=== PATIENT | female | born 1935 | race Caucasian/White ===

== ENCOUNTER 2016-07-05 11:03 | Emergency (ER) | payer MEDICARE, BC ==
[2016-07-05 11:32] VITALS: BP 136/60
--- NOTE | 2016-07-05 12:12 | UC ---
Respiratory Complaint HPI - HPI Summary HPI Summary: Had one day last week with lots of watery nasal congestion that seemed to go away with diphenhydramine and flonase. Now having hoarseness, cough, sneezing, thin nasal congestion and mild chest tightness starting 2 nights ago. No fevers or vomiting. Took zithromax in [place] (rx in [place]) for tracheitis, said that started with sneezing congestion and cough. - History of Current Complaint Chief Complaint: UCRespiratory Stated Complaint: DEEP COUGH,HEADACHE Time Seen by Provider: 07/05/16 11:42 Hx Obtained From: Patient ?: No Onset/Duration: Gradual Onset, Lasting Days Timing: Constant Severity Initially: Mild Severity Currently: Mild Character: Cough: Nonproductive Aggravating Factors: Recumbent Position Alleviating Factors: Upright Position Associated Signs And Symptoms: Positive: Wheezing - mild, URI, Nasal Congestion , Hoarseness. Negative: Fever, Chills - Allergies/Home Medications Allergies/Adverse Reactions: Allergies Allergy/AdvReac Type Severity Reaction Status Date / Time Penicillins Allergy Mild Rash Verified 07/05/16 11:22 Tetracycline Allergy Mild Rash Verified 07/05/16 11:22 Home Medications: Home Medications Apixaban* [Eliquis*] 5 mg BID 07/05/16 [History Confirmed 07/05/16] O2 SEE INSTRUCTIONS 07/05/16 [History] PMH/Surg Hx/FS Hx/Imm Hx Cardiovascular History Of: Reports: Cardiac Disorders - a fib, Hypertension Respiratory History Of: Reports: COPD - Surgical History Surgical History: Yes Surgery Procedure, Year, and Place: 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 - Family History Known Family History: Positive: Hypertension - Social History Occupation: Retired Alcohol Use: Rare Substance Use Type: None Smoking Status (MU): Former Smoker Type: Cigarettes Amount Used/How Often: 2 PPD Length of Time of Smoking/Using Tobacco: 40+ Years Have You Smoked in the Last Year: No When Did the Patient Quit Smoking/Using Tobacco: 03/20/94 - Immunization History Most Recent Influenza Vaccination: 2016 Most Recent Tetanus Shot: UTD Most Recent Pneumonia Vaccination: UTD Review of Systems Constitutional: Negative Skin: Negative Eyes: Negative ENT: Nasal Discharge Respiratory: Cough Cardiovascular: Negative Gastrointestinal: Negative Genitourinary: Negative Motor: Negative Neurovascular: Negative Musculoskeletal: Negative Neurological: Negative Psychological: Negative All Other Systems Reviewed And Are Negative: Yes Physical Exam Triage Information Reviewed: Yes Appearance: Well-Appearing, No Pain Distress, Well-Nourished Vital Signs: Initial Vital Signs Temp 97.5 F 07/05/16 11:25 Pulse 73 07/05/16 11:25 Resp 18 07/05/16 11:25 BP 136/60 07/05/16 11:25 Pulse Ox 96 07/05/16 11:25 Vital Signs Reviewed: Yes Eye Exam: Normal, Other - post cataract repair Eyes: Positive: Conjunctiva Clear ENT: Positive: Pharynx normal, Nasal congestion - mild, TMs normal. Negative: Tonsillar swelling, Tonsillar exudate Dental Exam: Normal Neck exam: Normal Neck: Positive: Supple, Nontender, No Lymphadenopathy Respiratory: Positive: No respiratory distress, No accessory muscle use - good air movement, Wheezing - minor Cardiovascular Exam: Normal Cardiovascular: Positive: RRR, No Murmur Musculoskeletal Exam: Normal Musculoskeletal: Positive: ROM Intact Neurological Exam: Normal Neurological: Positive: Alert Psychological Exam: Normal Skin Exam: Normal UC Diagnostic Evaluation - Laboratory O2 Sat by Pulse Oximetry: 96 Respiratory Course/Dx - Differential Dx/Diagnosis Provider Diagnoses: URI. allergic rhinitis Discharge - Discharge Plan Condition: Stable Disposition: HOME Prescriptions: Azithromycin TAB* [Zithromax TAB (Z-CONSTANCE) 250 mg #6 tabs] 250 mg PO DAILY #1 constance Patient Education Materials: Cold Symptoms (ED), Allergic Rhinitis (ED) Referrals: Rehan Shaw MD [Primary Care Provider] - Additional Instructions: Keep taking your flonase and start taking 10mg cetirizine (zyrtec) daily to help with the allergic component. You can continue the robitussin if it helps; viral infections usually start to improve after 5-7 days, so it may still be some days before you actually feel improvement. You should only start the zithromax if you develop fever over 100.3F or a significant increase in sputum from your chest. If your symptoms pass without significant worsening, you do not need to take the antibiotic at all. Come back or see your primary care provider if you have wheezing or increasing tightness in your chest.
== END 2016-07-05 12:18 | disposition home or self-care (01) ==
LOC: UCCORT 11:03
DX: J06.9 Acute upper respiratory infection, unspecified (principal); J30.9 Allergic rhinitis, unspecified; I10 Essential (primary) hypertension; I48.91 Unspecified atrial fibrillation; J44.9 Chronic obstructive pulmonary disease, unspecified; Z95.2 Presence of prosthetic heart valve; Z88.1 Allergy status to other antibiotic agents; Z88.0 Allergy status to penicillin; Z87.891 Personal history of nicotine dependence
CPT/HCPCS: 99212; G0463

== ENCOUNTER 2016-10-30 09:21 | Emergency (ER) | payer MEDICARE, BC ==
--- NOTE | 2016-10-30 09:33 | UC ---
Allergic Reaction HPI - HPI Summary HPI Summary: 81 YEAR OLD FEMALE PRESENTS WITH COMPLAINS OF HORNET STING ON LEFT KNEE AND ARM. - History of Current Complaint Stated Complaint: BEE STING Time Seen by Provider: 10/30/16 09:33 ?: No Onset/Duration: Sudden Onset Severity Initially: Moderate Severity Currently: Moderate Pain Scale Used: 0-10 Numeric - 3 Location: Diffuse Character: Swelling, Pruritus, Pain Aggrevating Factor(s): Nothing Alleviating Factor(s): Nothing Associated Signs And Symptoms: Positive: Negative - Related Hx Possible Reaction To: Insect - Allergies/Home Medications Allergies/Adverse Reactions: Allergies Allergy/AdvReac Type Severity Reaction Status Date / Time Penicillins Allergy Mild Rash Verified 10/30/16 09:49 Tetracycline Allergy Mild Rash Verified 10/30/16 09:49 adhesive tapes Allergy Rash Uncoded 10/30/16 09:49 Home Medications: Home Medications Albuterol HFA INHALER* [Ventolin HFA Inhaler*] 2 puff INH ONCE PRN 10/30/16 [ History Confirmed 10/30/16] Diphenhydramine HCl [Benadryl Allergy 25 MG TAB] 25 mg PO ONCE 10/30/16 [ History Confirmed 10/30/16] Stress Tab With Zn 1 tab PO DAILY 10/30/16 [History Confirmed 10/30/16] PMH/Surg Hx/FS Hx/Imm Hx Previously Healthy: Yes - Surgical History Surgical History: Yes Surgery Procedure, Year, and Place: 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 - Family History Known Family History: Positive: Hypertension - Social History Alcohol Use: Rare Substance Use Type: None Smoking Status (MU): Former Smoker Type: Cigarettes Amount Used/How Often: 2 PPD Length of Time of Smoking/Using Tobacco: 40+ Years Have You Smoked in the Last Year: No When Did the Patient Quit Smoking/Using Tobacco: 03/20/94 - Immunization History Most Recent Influenza Vaccination: 2016 Most Recent Tetanus Shot: UTD Most Recent Pneumonia Vaccination: UTD Review of Systems Constitutional: Negative Skin: Rash, Other - HORNET STING Eyes: Negative ENT: Negative Respiratory: Negative Cardiovascular: Negative Gastrointestinal: Negative Genitourinary: Negative Motor: Negative Neurovascular: Negative Musculoskeletal: Negative Neurological: Negative Psychological: Negative All Other Systems Reviewed And Are Negative: Yes Physical Exam Triage Information Reviewed: Yes Eye Exam: Normal ENT Exam: Normal Dental Exam: Normal Neck exam: Normal Neck: Positive: 1 Respiratory Exam: Normal Cardiovascular Exam: Normal Abdominal Exam: Normal Musculoskeletal Exam: Normal Neurological Exam: Normal Psychological Exam: Normal Skin: Positive: rashes - LEFT KNEE /ARM Allergic Reaction Course/Dx - Differential Dx/Diagnosis Provider Diagnoses: BEE STING. RASH Discharge - Discharge Plan Condition: Stable Disposition: HOME Prescriptions: LoraTADine TAB(NF) [Claritin 10 MG TAB(NF)] 10 mg PO DAILY #30 tab Triamcinolone 0.1% CREAM (NF) [Kenalog 0.1% Cream (NF)] 1 applic TOPICAL TID PRN #90 gm PRN Reason: Itching predniSONE TAB* [Deltasone TAB*] 40 mg PO DAILY #10 tab Patient Education Materials: Insect Bite or Sting (ED) Referrals: Rehan Shaw MD [Primary Care Provider] -
[2016-10-30 10:05] VITALS: BP 140/48
== END 2016-10-30 10:09 | disposition home or self-care (01) ==
LOC: UCCORT 09:21
DX: T63.441A Toxic effect of venom of bees, accidental (unintentional), initial encounter (principal); R21 Rash and other nonspecific skin eruption; Y92.9 Unspecified place or not applicable; Z95.2 Presence of prosthetic heart valve; Z88.1 Allergy status to other antibiotic agents; Z88.0 Allergy status to penicillin; Z91.048 Other nonmedicinal substance allergy status; Z87.891 Personal history of nicotine dependence
CPT/HCPCS: 99212; G0463

== ENCOUNTER 2017-05-23 10:50 | Emergency (ER) | payer MEDICARE, BC ==
[2017-05-23 11:53] VITALS: BP 124/67
--- NOTE | 2017-05-23 12:17 | UC ---
Respiratory Complaint HPI - HPI Summary HPI Summary: cough x 1 week no fever, no chills, + nasal congestion no wheezing , no sob - History of Current Complaint Chief Complaint: UCGeneralIllness Stated Complaint: COUGH,CONGESTION,ACHY Time Seen by Provider: 05/23/17 11:50 Hx Obtained From: Patient ?: No Onset/Duration: Gradual Onset Timing: Constant Severity Initially: Moderate Severity Currently: Moderate Pain Intensity: 0 Pain Scale Used: 0-10 Numeric Character: Cough: Nonproductive Aggravating Factors: Deep Breaths Alleviating Factors: Nothing Associated Signs And Symptoms: Positive: URI, Nasal Congestion. Negative: Dyspnea, Fever, Chills, Pleuritic Chest Pain, Wheezing, Hemoptysis, Dizziness, Calf Pain, Calf Swelling, Edema - Allergies/Home Medications Allergies/Adverse Reactions: Allergies Allergy/AdvReac Type Severity Reaction Status Date / Time MS Penicillins [Penicillins] Allergy Mild Rash Verified 10/30/16 09:49 MS Tetracycline Allergy Mild Rash Verified 10/30/16 09:49 [Tetracycline] adhesive tapes Allergy Rash Uncoded 10/30/16 09:49 PMH/Surg Hx/FS Hx/Imm Hx Cardiovascular History: Hypertension, Atrial Fibrillation - Surgical History Surgical History: Yes Surgery Procedure, Year, and Place: 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 - Family History Known Family History: Positive: Hypertension - Social History Alcohol Use: Occasionally Substance Use Type: None Smoking Status (MU): Former Smoker Type: Cigarettes Amount Used/How Often: 2 PPD Length of Time of Smoking/Using Tobacco: 40+ Years Have You Smoked in the Last Year: No When Did the Patient Quit Smoking/Using Tobacco: 03/20/94 - Immunization History Most Recent Influenza Vaccination: 2016 Most Recent Tetanus Shot: UTD Most Recent Pneumonia Vaccination: UTD Review of Systems Constitutional: Negative Skin: Negative Eyes: Negative ENT: Nasal Discharge Respiratory: Cough Cardiovascular: Negative Gastrointestinal: Negative Is Patient Immunocompromised?: No All Other Systems Reviewed And Are Negative: Yes Physical Exam Triage Information Reviewed: Yes Appearance: Well-Appearing, No Pain Distress, Well-Nourished Vital Signs: Initial Vital Signs Temp 98.7 F 05/23/17 11:42 Pulse 75 05/23/17 11:42 Resp 16 05/23/17 11:42 BP 124/67 05/23/17 11:42 Pulse Ox 97 05/23/17 11:42 Vital Signs Reviewed: Yes Eye Exam: Normal Eyes: Positive: Conjunctiva Clear ENT: Positive: Normal ENT inspection, Hearing grossly normal, Pharynx normal Neck: Positive: Supple, Nontender, No Lymphadenopathy Respiratory: Positive: Chest non-tender, Lungs clear, Normal breath sounds Cardiovascular: Positive: RRR, No Murmur, Pulses Normal Skin Exam: Normal UC Diagnostic Evaluation - Laboratory O2 Sat by Pulse Oximetry: 97 Respiratory Course/Dx - Differential Dx/Diagnosis Provider Diagnoses: bronchitis Discharge - Discharge Plan Condition: Stable Disposition: HOME Prescriptions: Codeine Phosphate/Guaifenesin [Cheratussin AC] 10 ml PO Q8H #120 ml MDD 30 ml Patient Education Materials: Acute Bronchitis (ED) Referrals: Rehan Shaw MD [Primary Care Provider] - 7 Days
== END 2017-05-23 12:11 | disposition home or self-care (01) ==
LOC: UCCORT 10:50
DX: J40 Bronchitis, not specified as acute or chronic (principal); Z88.1 Allergy status to other antibiotic agents; Z88.0 Allergy status to penicillin; Z91.048 Other nonmedicinal substance allergy status; Z87.891 Personal history of nicotine dependence
CPT/HCPCS: 99212; G0463

== ENCOUNTER 2018-05-30 10:40 | Emergency (ER) | payer MEDICARE, BC ==
[2018-05-30 12:27] VITALS: BP 139/71
--- NOTE | 2018-05-30 12:47 | UC ---
Respiratory Complaint HPI - HPI Summary HPI Summary: This patient has had a chronic cough over the past couple of months due to her blood pressure medicine. She states 2 days ago she received the shingles vaccination and since then she has had some fatigue, worsening of her cough. - History of Current Complaint Chief Complaint: UCRespiratory Stated Complaint: COUGH Time Seen by Provider: 05/30/18 12:46 Hx Obtained From: Patient ?: No Onset/Duration: Other - Patient has a chronic cough due to her blood pressure medicine Timing: Intermittent Episodes Severity Initially: Mild Severity Currently: Mild Pain Intensity: 0 Character: Cough: Nonproductive Aggravating Factors: Other - Blood pressure medicine however she did get a shingles vaccination 2 days ago Alleviating Factors: Nothing Associated Signs And Symptoms: Positive: Negative - Allergies/Home Medications Allergies/Adverse Reactions: Allergies Allergy/AdvReac Type Severity Reaction Status Date / Time Penicillins Allergy Rash Verified 05/30/18 12:21 Tetracyclines Allergy Rash Verified 05/30/18 12:21 adhesive tapes Allergy Rash Uncoded 10/30/16 09:49 Home Medications: Home Medications Acetaminophen [Tylenol Arthritis] 650 mg PO BID 05/30/18 [History Confirmed ] Albuterol inh POWDER (NF) [Proair Respiclick] 1 puff INH DAILY PRN 05/30/18 [ History Confirmed 05/30/18] Losartan TAB* [Cozaar TAB*] 25 mg PO DAILY 05/30/18 [History Confirmed 05/30/18] Oxygen 2 05/30/18 [History] Simvastatin [Zocor] 40 mg PO DAILY 05/30/18 [History Confirmed 05/30/18] PMH/Surg Hx/FS Hx/Imm Hx Previously Healthy: Yes Cardiovascular History: Hypertension Respiratory History: COPD - Surgical History Surgical History: Yes Surgery Procedure, Year, and Place: 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 - Family History Known Family History: Positive: Hypertension - Social History Occupation: Retired Alcohol Use: Occasionally Substance Use Type: None Smoking Status (MU): Former Smoker Type: Cigarettes Amount Used/How Often: 2 PPD Length of Time of Smoking/Using Tobacco: 40+ Years Have You Smoked in the Last Year: No When Did the Patient Quit Smoking/Using Tobacco: 03/20/94 - Immunization History Most Recent Influenza Vaccination: 2016 Most Recent Tetanus Shot: UTD Most Recent Pneumonia Vaccination: UTD Review of Systems All Other Systems Reviewed And Are Negative: Yes Constitutional: Positive: Negative Skin: Positive: Negative Eyes: Positive: Negative ENT: Positive: Negative Respiratory: Positive: Cough - Chronic dry cough from her blood pressure medicine however she states over the past couple days it has worsened. Cardiovascular: Positive: Negative Gastrointestinal: Positive: Negative Genitourinary: Positive: Negative Motor: Positive: Negative Neurovascular: Positive: Negative Musculoskeletal: Positive: Negative Neurological: Positive: Negative Psychological: Positive: Negative Is Patient Immunocompromised?: No Physical Exam Triage Information Reviewed: Yes Appearance: Well-Appearing, No Pain Distress, Well-Nourished Vital Signs: Initial Vital Signs Temp 98.3 F 05/30/18 12:19 Pulse 93 05/30/18 12:19 Resp 20 05/30/18 12:19 BP 139/71 05/30/18 12:19 Pulse Ox 97 05/30/18 12:19 Vital Signs Reviewed: Yes Eye Exam: Normal ENT Exam: Normal Neck exam: Normal Respiratory Exam: Normal Cardiovascular Exam: Normal Musculoskeletal: Positive: Strength Intact, ROM Intact Neurological: Positive: Alert, Muscle Tone Normal Psychological Exam: Normal Skin Exam: Normal Respiratory Course/Dx - Course Course Of Treatment: CXR: REPORT: Elevated lung volumes and both diffuse mild prominence of the interstitial. markings and patchy rarefaction of the mid to upper lung zone interstitial markings. No. focal pulmonary lesion, compelling alveolar consolidation, pleural effusion, pneumothorax. Cardiomegaly. Median sternotomy wires and prosthetic aortic valve. Unremarkable central. pulmonary vasculature. No thoracic fractures evident. IMPRESSION: #. Stigmata of obstructive lung disease. #. Cardiomegaly increased over the prior exam. #. No acute cardiopulmonary process evident. - Differential Dx/Diagnosis Differential Diagnosis/HQI/PQRI: Other - Chronic cough Provider Diagnosis: Chronic cough Discharge - Sign-Out/Discharge Documenting (check all that apply): Patient Departure All imaging exams completed and their final reports reviewed: Yes - Discharge Plan Condition: Good Disposition: HOME Patient Education Materials: Chronic Cough (ED) Referrals: Rehan Shaw MD [Primary Care Provider] - Additional Instructions: Follow-up with your primary care provider if any worsening symptoms - Billing Disposition and Condition Condition: GOOD Disposition: Home
== END 2018-05-30 13:36 | disposition home or self-care (01) ==
LOC: UCCORT 10:40
DX: R05 Cough (principal); R53.83 Other fatigue; I10 Essential (primary) hypertension; J44.9 Chronic obstructive pulmonary disease, unspecified; Z79.899 Other long term (current) drug therapy; Z88.1 Allergy status to other antibiotic agents; Z87.891 Personal history of nicotine dependence; Z88.0 Allergy status to penicillin; Z91.09 Other allergy status, other than to drugs and biological substances
CPT/HCPCS: 71046; 99211; G0463

== ENCOUNTER → 2018-07-09 09:22 | Day surgery (SDC) | payer MEDICARE, BC ==
[~2018-07-09 09:22] MED LIST: Acetaminophen TAB* 325 MG PO PRN; Buffered Lidocaine 1% SYRIN* 1 ML/SYRINGE INTRADERM ONE; DiMENhydriNATE IV* 50 MG/ML VIAL IV PUSH PRN; Famotidine IV* 10 MG/ML 2 ML (20 mg) IV ONE; Famotidine IV* 10 MG/ML 2 ML (20 mg) ONE; Ketorolac INJ* 30 MG/ML 1 ML VIAL ONE; Lactated Ringers 1000 ML Bag* 1,000 ML IV SCH; Lidocaine 2% PF * 5 ML VIAL ONE; Midazolam* 1 MG/ML 5 ML VIAL (5 MG) ONE; Naloxone* 0.4 MG/ML 1 ML VIAL IV PRN; Ondansetron INJ* 2 MG/ML VIAL ONE; Propofol* 10 MG/ML 20 ML BTL ONE; fentaNYL* 50 MCG/ML 2 ML VIAL (100 MCG VIAL) ONE
[2018-07-09 12:25] VITALS: BP 115/53
--- NOTE | 2018-07-09 23:40 | OP ---
DATE OF OPERATION: 07/09/18 - SDS DATE OF : 37 SURGEON: Mega Frye MD PROPERTY OFFICER: BETTY Lin ANESTHESIOLOGIST: Dr. Monae. ANESTHESIA: Local MAC. PRE-OP DIAGNOSIS: Right carpal tunnel syndrome. POST-OP DIAGNOSIS: Right carpal tunnel syndrome. OPERATIVE PROCEDURE: Right open carpal tunnel release. INDICATIONS: Darleen is 83. She has severe right carpal tunnel syndrome. The numbness in the fingertips is really bothering her. We talked about risks and benefits. She wants to proceed with surgery. ESTIMATED BLOOD LOSS: 2 mL. COMPLICATIONS: None. FINDINGS: See above and below. DESCRIPTION OF PROCEDURE: Darleen was seen in the preoperative holding area. The correct site, side, and procedure were identified. We came back to the operating room. The arm was prepped and draped in the usual fashion and a time- out was performed. The arm was exsanguinated with the Esmarch and the tourniquet was inflated to 250 mmHg. I have already anesthetized the operative area with 0.25% plain Marcaine. A 2 to 3 cm incision was made in the proximal palm. Dissection was carried down through the subcutaneous tissue and palmar fascia. The transverse carpal ligament was released off the radial aspect of the hook of hamate. The release was completed distally and then proximally. I released the subcutaneous tissue and fascia and retracted this out of the way and then released the remainder of the transverse carpal ligament and distal antebrachial fascia under direct visualization. The release was checked. The median nerve was freed up. Wound was irrigated out. The skin was closed with 4 -0 nylon. Soft dressings were applied and she was taken to the recovery room in stable condition. [id number]/[facility] #: [id number] MTDD
== END | disposition home or self-care (01) ==
LOC: OR 09:22
PROVIDERS: ATTEND Orthopaedic Surgery Hand Surgery
DX: G56.03 Carpal tunnel syndrome, bilateral upper limbs (principal); I36.0 Nonrheumatic tricuspid (valve) stenosis; I48.91 Unspecified atrial fibrillation; M81.0 Age-related osteoporosis without current pathological fracture; I10 Essential (primary) hypertension; E78.00 Pure hypercholesterolemia, unspecified; E16.2 Hypoglycemia, unspecified; Z88.0 Allergy status to penicillin; Z88.8 Allergy status to other drugs, medicaments and biological substances; Z91.048 Other nonmedicinal substance allergy status
CPT/HCPCS: J1885; J2250; J2405; J2704; J3010

== ENCOUNTER 2018-07-30 05:43 | Day surgery (SDC) | payer MEDICARE, BC ==
[~2018-07-30 05:43] MED LIST changes: -Acetaminophen TAB* 325 MG PO PRN; -DiMENhydriNATE IV* 50 MG/ML VIAL IV PUSH PRN; -Famotidine IV* 10 MG/ML 2 ML (20 mg) IV ONE; -Famotidine IV* 10 MG/ML 2 ML (20 mg) ONE; -Ketorolac INJ* 30 MG/ML 1 ML VIAL ONE; -Lactated Ringers 1000 ML Bag* 1,000 ML IV SCH; -Lidocaine 2% PF * 5 ML VIAL ONE; -Midazolam* 1 MG/ML 5 ML VIAL (5 MG) ONE; -Naloxone* 0.4 MG/ML 1 ML VIAL IV PRN; -Ondansetron INJ* 2 MG/ML VIAL ONE; -Propofol* 10 MG/ML 20 ML BTL ONE; -fentaNYL* 50 MCG/ML 2 ML VIAL (100 MCG VIAL) ONE
[2018-07-30] MEDS ORDERED: Lactated Ringers 1000 ML Bag* 1,000 ML IV SCH (06:00)
[2018-07-30] MEDS ORDERED: Naloxone* 0.4 MG/ML 1 ML VIAL IV PRN (07:29)
[2018-07-30] MEDS ORDERED: fentaNYL* 50 MCG/ML 2 ML VIAL (100 MCG VIAL) ONE (07:36)
[2018-07-30] MEDS ORDERED: Propofol* 10 MG/ML 20 ML BTL ONE (07:38)
[2018-07-30] MEDS ORDERED: Lidocaine 2% PF * 5 ML VIAL ONE (07:38)
[2018-07-30] MEDS ORDERED: Bupivacaine 0.25% SDV PF* 10 ML VIAL INJ ONE (07:39)
[2018-07-30 08:47] VITALS: BP 156/86
--- NOTE | 2018-07-30 12:41 | OP ---
DATE OF OPERATION: 07/30/18 - SDS DATE OF : 37 SURGEON: Mega Frye MD ABORIGINAL EDUCATION WORKER COORDINATOR: BETTY Lin ANESTHESIOLOGIST: Dr. Mendez. ANESTHESIA: Local MAC. PRE-OP DIAGNOSIS: Left carpal tunnel syndrome. POST-OP DIAGNOSIS: Left carpal tunnel syndrome. OPERATIVE PROCEDURE: Left open carpal tunnel release. INDICATIONS: Darleen has a carpal tunnel. She has done well on the right. She wants surgery on the left. She understands the risks associated with this. ESTIMATED BLOOD LOSS: 2 mL. COMPLICATIONS: None. FINDINGS: See above and below. DESCRIPTION OF PROCEDURE: Darleen was seen in the preoperative holding area. The correct site, side, and procedure were identified. We came back to the operating room where the arm was prepped and draped in the usual fashion and time-out was performed. The arm was exsanguinated with the Esmarch and the tourniquet was inflated to 225 mmHg. I made a longitudinal incision in the proximal palm about 2 to 3 cm. Dissection was carried down through the subcutaneous tissue and palmar fascia. The transverse carpal ligament was released just off the radial aspect of the hook of the hamate. The release was completed distally and then proximally. I placed a Chad retractor and then I released the remainder of the distal antebrachial fascia and transverse carpal ligament with the tenotomy scissors under direct visualization. I had excellent visualization. Everything was looking good and the release was excellent, so we irrigated out the wound. Skin was closed with 4-0 nylon suture. Soft dressings were applied and she was taken to the recovery room in stable condition. [id number]/[facility] #: [id number] [facility]
== END 2018-07-30 09:10 | disposition home or self-care (01) ==
LOC: OR 05:43
PROVIDERS: ATTEND Orthopaedic Surgery Hand Surgery
DX: G56.02 Carpal tunnel syndrome, left upper limb (principal); I48.2 Chronic atrial fibrillation; Z79.01 Long term (current) use of anticoagulants; Z87.891 Personal history of nicotine dependence; I10 Essential (primary) hypertension; E78.00 Pure hypercholesterolemia, unspecified; J44.9 Chronic obstructive pulmonary disease, unspecified; I36.1 Nonrheumatic tricuspid (valve) insufficiency; Z95.2 Presence of prosthetic heart valve; M81.0 Age-related osteoporosis without current pathological fracture; E78.5 Hyperlipidemia, unspecified
CPT/HCPCS: J2704; J3010; J3490